=== PATIENT | female | born 1935 ===

== ENCOUNTER 2018-01-09 17:30 | Emergency (ER) | payer MEDICARE, MEDICAID ==
[2018-01-09] MEDS ORDERED: Iohexol 240 (50 ml) PO STA (17:48)
[2018-01-09] MEDS ORDERED: Sodium Chloride 0.9% 1,000 ML IV ONE (17:48)
--- NOTE | 2018-01-09 17:52 | C.PDOC ---
"History Of Present Illness 82 year old female presents to the ED complaining of left sided abdominal pain for more than one week. Patient states the pain was tolerable until today that pain became severe. She denies any nausea, vomiting, diarrhea, fever, or urinary symptoms. Pain is worsen by walking and moving. Time Seen by Provider: 01/09/18 17:37 Chief Complaint (Nursing): Abdominal Pain History Per: Patient History/Exam Limitations: no limitations Onset/Duration Of Symptoms: Days Current Symptoms Are (Timing): Still Present Location Of Pain/Discomfort: LLQ Radiation Of Pain To:: None Associated Symptoms: denies: Fever, Vomiting, Diarrhea, Urinary Symptoms Exacerbating Factors: Movement, Walking Past Medical History Reviewed: Historical Data, Nursing Documentation, Vital Signs Vital Signs: Last Vital Signs Temp 98.7 F 01/09/18 17:39 Pulse 78 01/09/18 20:36 Resp 16 01/09/18 20:36 BP 160/41 H 01/09/18 20:36 Pulse Ox 95 01/09/18 21:08 - Medical History PMH: Arthritis, HTN Denies: Chronic Kidney Disease Surgical History: Hernia Repair, - [facility] Procedures COLONOSCOPY (06/08/14) Family History: States: No Known Family Hx - Social History Hx Tobacco Use: No Hx Alcohol Use: No Hx Substance Use: No - Immunization History Hx Tetanus Toxoid Vaccination: No Hx Influenza Vaccination: No Hx Pneumococcal Vaccination: No Review Of Systems Constitutional: Negative for: Fever Gastrointestinal: Positive for: Abdominal Pain (Left lower quadrant ). Negative for: Nausea, Vomiting, Diarrhea Genitourinary: Negative for: Dysuria, Frequency, Incontinence, Hematuria, Vaginal Bleeding Musculoskeletal: Negative for: Back Pain Physical Exam - Physical Exam Appears: Non-toxic, Other (Uncomfortable ) Skin: Normal Color, Warm, Dry Head: Atraumatic Eye(s): bilateral: Normal Inspection Nose: Normal Oral Mucosa: Moist Neck: Supple Chest: Symmetrical Cardiovascular: Rhythm Regular Respiratory: Normal Breath Sounds, No Rales, No Rhonchi, No Wheezing Gastrointestinal/Abdominal: Bowel Sounds (Active ), Soft, Tenderness (Left lower quadrant ), Guarding, No Rebound Neurological/Psych: Oriented x3 Gait: Steady ED Course And Treatment - Laboratory Results Result Diagrams: 01/09/18 18:00 01/09/18 18:00 Lab Interpretation: No Acute Changes O2 Sat by Pulse Oximetry: 95 (RA) Pulse Ox Interpretation: Normal - CT Scan/US CT Abd/pel Other Rad Studies (CT/US): Read By Radiologist, Radiology Report Reviewed CT/US Interpretation: Name: BETTE GAO Age: 82Years F Date: 01/09/2018. Requesting Physician: Corazon Winchester : 1935. [facility] Procedure Ordered As Accession Number of. Images. CT ABDOMEN/PELVIS. W. CT ABD PELVIS PO IV. CONTRAST. [id number]. J. 1228. Provided Clinical History: abd pain. EXAM: CT Abdomen and Pelvis With Intravenous Contrast. CLINICAL HISTORY: 82 years old, female; Pain and signs and symptoms; Nausea; Abdominal pain;. Localized; Left lower quadrant (llq); Prior surgery; Surgery date: 6+ months; Surgery type: Hernia;. Additional info: Abd pain. TECHNIQUE: Axial computed tomography images of the abdomen and pelvis with intravenous. contrast. All CT scans at this facility use at least one of these dose optimization techniques: automated exposure control; mA and/or kV adjustment per patient size (includes targeted exams. where dose is matched to clinical indication); or iterative reconstruction. Coronal and sagittal. reformatted images were created and reviewed. CONTRAST: 100 mL of omnipaque 300 was administered intravenously. COMPARISON: No relevant prior studies available. FINDINGS: Lung bases: Atelectasis posterior lungs. ABDOMEN: Liver: Unremarkable. No mass. Gallbladder and bile ducts: Cholecystectomy. No ductal dilation. Pancreas: Unremarkable. No mass. No ductal dilation. Spleen: Unremarkable. No splenomegaly. Adrenals: Unremarkable. No mass. Kidneys and ureters: Right renal cysts. No hydronephrosis. Stomach and bowel: Diverticulosis in the colon without evidence of diverticulitis. No obstruction. PELVIS: Appendix: Normal appendix. Bladder: Unremarkable. No mass. BETTE GAO | Preliminary Radiology Report. CONFIDENTIALITY STATEMENT. This report is intended only for the use of the referring physician, and only in accordance with law, If you received this in error, call [phone]. Page 2 of 2. Reproductive: Unremarkable as visualized. ABDOMEN and PELVIS: Intraperitoneal space: Unremarkable. No free air. No significant fluid collection. Bones/joints: Degenerative changes lumbar spine. No acute fracture. No dislocation. Soft tissues: Unremarkable. Vasculature: Atherosclerotic disease. No abdominal aortic aneurysm. Lymph nodes: Unremarkable. No enlarged lymph nodes. IMPRESSION: No acute findings. Thank you for allowing us to participate in the care of your patient. Dictated and Authenticated by: Andrea Love MD. 9:06 PM Eastern Time ([place] & [place]) Reevaluation Time: 21:29 Reassessment Condition: Improved (Patient still having pain in abdominal wall LLQ but resting quietly.) Medical Decision Making Medical Decision Making: Plan - CT Abd/Pel - Labs - Morphine 2mg IVP - IV Fluids - UA - Reassess Disposition Counseled Patient/Family Regarding: Studies Performed, Diagnosis, Need For Followup - Disposition Referrals: Chanda Barajas MD [Staff Provider] - Disposition: HOME/ ROUTINE Disposition Time: 21:29 Condition: IMPROVED Additional Instructions: Take Tylenol or Advil if needed for pain. Instructions: Acute Abdomen (Belly Pain), Adult (DC) Forms: [facility] (Lebanese) Print Language: LITHUANIAN - Clinical Impression Clinical Impression: Abdominal wall pain - Scribe Statement The provider has reviewed the documentation as recorded by the Scribe Gilda Cannon All medical record entries made by the Scribe were at my direction and personally dictated by me. I have reviewed the chart and agree that the record accurately reflects my personal performance of the history, physical exam, medical decision making, and the department course for this patient. I have also personally directed, reviewed, and agree with the discharge instructions and disposition."
[2018-01-09] MEDS ORDERED: Iohexol 240 (50 ml) ONE (17:57)
[2018-01-09 18:09] LABS: BASO # 0.1 K/uL (0.0-0.2); BASO % 0.9 % (0.0-2.0); EOS # 0.1 K/uL (0.0-0.7); EOS % 1.1 % (0.0-4.0); HEMOGLOBIN 12.6 g/dL (11.0-16.0); LYMPH # 1.4 K/uL (1.0-4.3); LYMPH % 13.3 % (20.0-40.0); MEAN CORPUSCULAR HEMOGLOBIN 29.6 pg (27.0-31.0); MEAN CORPUSCULAR HGB CONC 34.3 g/dL (33.0-37.0); MEAN PLATELET VOLUME 8.2 fL (7.2-11.7); MONO # 0.9 K/uL (0.0-0.8); MONO % 8.1 % (0.0-10.0); NEUT # 8.3 K/uL (1.8-7.0); NEUT % 76.6 % (50.0-75.0); RBC 4.25 Mil/uL (3.80-5.20); RED CELL DISTRIBUTION WIDTH 13.5 % (11.5-14.5); WHITE BLOOD COUNT 10.9 K/uL (4.8-10.8)
[2018-01-09 18:10] LABS: MEAN CELL VOLUME 86.2 fL (81.0-99.0)
[2018-01-09 18:14] LABS: ALB/GLOB RATIO 1.3 (1.0-2.1); ALBUMIN 4.1 g/dL (3.5-5.0); ALT/SGPT 29 U/L (9-52); AST/SGOT 21 U/L (14-36); BLOOD UREA NITROGEN 20 mg/dL (7-17); CALCIUM 9.1 mg/dl (8.6-10.4); GFR AFRICAN-AMERICAN > 60; GFR NON-AFRICAN AMERICAN 53; LIPASE 165 U/L (23-300)
[2018-01-09] MEDS ORDERED: Iohexol 300 100 ML IJ ONE (18:34)
[2018-01-09 20:30] LABS: URINE BILIRUBIN NEGATIVE (NEGATIVE); URINE BLOOD NEGATIVE (NEGATIVE); URINE CLARITY Clear (Clear); URINE COLOR Straw (YELLOW); URINE GLUCOSE (UA) NORMAL (Normal); URINE LEUKOCYTE ESTERASE NEG Leu/uL (Negative); URINE PROTEIN NEGATIVE (NEGATIVE); URINE UROBILINOGEN NORMAL mg/dL (0.2-1.0)
[2018-01-09 20:37] VITALS: O2SAT 95
[2018-01-09 21:40] VITALS: BP 170/51; PULSE 74; RESP 20; TEMP 98
--- NOTE | 2018-01-10 11:12 | CT ---
Date of service: 01/09/2018 PROCEDURE: CT Abdomen and Pelvis with contrast HISTORY: abd pain COMPARISON: None. TECHNIQUE: Following oral and intravenous contrast administration, a CT examination of the abdomen and pelvis performed from the domes of the diaphragms to the symphysis pubis with reformatted datasets provided not only axial but also sagittal and coronal series. Contrast dose: Omnipaque 300, 100 cc Radiation dose: Total exam DLP = 1026.41 mGy-cm. This CT exam was performed using one or more of the following dose reduction techniques: Automated exposure control, adjustment of the mA and/or kV according to patient size, and/or use of iterative reconstruction technique. FINDINGS: LOWER THORAX: Cardiomegaly. Mild scattered ground-glass opacities identified at both bases of a nonspecific etiology. No pleural or pericardial effusion evident grossly. LIVER: Diminished attenuation is seen throughout the liver suggestive of diffuse fatty infiltration. GALLBLADDER AND BILE DUCTS: Prior cholecystectomy. PANCREAS: Unremarkable. No gross lesion or ductal dilatation. SPLEEN: Unremarkable. ADRENALS: Unremarkable. No mass. KIDNEYS AND URETERS: 1.2 cm midpole right renal cyst with mildly prominent extrarenal pelvis right kidney. No obstructive uropathy bilaterally. Left kidney grossly nonfocal. VASCULATURE: Unremarkable. No aortic aneurysm. BOWEL: Stomach is unremarkable though partially obscured by retained occluded. Oral contrast is distends the stomach. The bowel is nonobstructive. Opacified large small bowel loops are remarkable only for sigmoid diverticulosis without acute changes. APPENDIX: Normal appendix. PERITONEUM: Unremarkable. No free fluid. No free air. LYMPH NODES: Unremarkable. No enlarged lymph nodes. BLADDER: Unremarkable. REPRODUCTIVE: Unremarkable. BONES: No acute fracture. OTHER FINDINGS: None. IMPRESSION: 1. Sigmoid diverticulosis without diverticulitis. 2. Simple cyst right kidney. 3. Prior cholecystectomy. 4. No definite acute abdominopelvic findings. Concordant preliminary report from [facility], 01/09/2018.
== END 2018-01-09 21:41 | disposition home or self-care (01) ==
LOC: C.ER 17:30
DX: R10.9 Unspecified abdominal pain (principal); I10 Essential (primary) hypertension
CPT/HCPCS: 74177; 80053; 81001; 83690; 85025; 96361; 96374; 96376; 99285; J2270; J7030; Q9966; Q9967

== ENCOUNTER 2018-11-11 08:32 | Outpatient (CLI) | payer MEDICARE, MEDICAID | END 2018-11-11 08:33 | disposition home or self-care (01) | LOC: C.MRIC 08:32 ==

== ENCOUNTER 2018-11-16 11:54 | Emergency (ER) | payer MEDICARE, MEDICAID ==
[2018-11-16 12:01] VITALS: BMI 38.2
--- NOTE | 2018-11-16 13:42 | CT ---
Date of service: 11/16/2018 PROCEDURE: CT HEAD WITHOUT CONTRAST. HISTORY: Headache COMPARISON: None available. TECHNIQUE: Axial computed tomography images were obtained through the head/brain without intravenous contrast. Radiation dose: Total exam DLP = 1263.49 mGy-cm. This CT exam was performed using one or more of the following dose reduction techniques: Automated exposure control, adjustment of the mA and/or kV according to patient size, and/or use of iterative reconstruction technique. FINDINGS: HEMORRHAGE: No intracranial hemorrhage. BRAIN: There are mild chronic microangiopathic changes. There is no mass, mass effect or abnormal extra-axial fluid collection. There is no territorial infarction. The midline sagittal structures are normal.There are coarse atherosclerotic calcifications in the cavernous carotid arteries. VENTRICLES: There is mild age-related global parenchymal volume loss and proportionate enlargement of the ventricles and cortical sulci. CALVARIUM: There is no calvarial fracture or extracranial soft tissue swelling. PARANASAL SINUSES: Predominantly clear. MASTOID AIR CELLS: Predominantly clear. OTHER FINDINGS: None. IMPRESSION: No acute intracranial abnormality. Mild chronic microangiopathic changes and mild age-related global parenchymal volume loss.
[2018-11-16 14:11] VITALS: BP 166/49; PULSE 76; RESP 16; TEMP 97.6; O2SAT 96
--- NOTE | 2018-11-16 14:55 | C.PDOC ---
History Of Present Illness 83 year old female with PMH HTN presents to ED with worsening occipital headache x 1 week. Patient also reports associated nausea, no vomiting. Patient describes headache as pulsing, constant, not positional, not associated with time of day. Endorses photophobia. Denies photophobia, history of migraine, vision change, dizziness, weakness, chest pain, SOB, abdominal pain, urinary symptoms, or sick contacts. Time Seen by Provider: 11/16/18 12:08 Chief Complaint (Nursing): Headache History Per: Patient History/Exam Limitations: no limitations Onset/Duration Of Symptoms: Days Current Symptoms Are (Timing): Still Present Severity: Moderate Preceeding Symptoms: None Past Medical History Vital Signs: Last Vital Signs Temp 97.6 F 11/16/18 14:10 Pulse 76 11/16/18 14:10 Resp 16 11/16/18 14:10 BP 166/49 H 11/16/18 14:10 Pulse Ox 96 11/16/18 14:10 Primary Care Provider: FAMILY PROVIDER,NO - Medical History PMH: Arthritis, HTN Denies: Chronic Kidney Disease Surgical History: Hernia Repair, - [facility] Procedures COLONOSCOPY (06/08/14) Family History: States: Unknown Family Hx - Social History Hx Tobacco Use: No Hx Alcohol Use: No Hx Substance Use: No - Immunization History Hx Tetanus Toxoid Vaccination: No Hx Influenza Vaccination: No Hx Pneumococcal Vaccination: No Review Of Systems Constitutional: Negative for: Fever, Chills Eyes: Negative for: Vision Change Cardiovascular: Negative for: Chest Pain, Palpitations Respiratory: Negative for: Cough, Shortness of Breath Gastrointestinal: Positive for: Nausea. Negative for: Vomiting, Abdominal Pain Genitourinary: Negative for: Dysuria Musculoskeletal: Positive for: Neck Pain. Negative for: Back Pain Neurological: Positive for: Headache. Negative for: Weakness, Numbness Physical Exam - Physical Exam Appears: Well, Non-toxic, No Acute Distress, Other (Resting with closed eyes in dark room) Skin: Normal Color, Warm, Dry Head: Atraumatic, Normacephalic Eye(s): bilateral: Normal Inspection, PERRL, EOMI Oral Mucosa: Moist Neck: Normal ROM (Pain with flexion and rotation, but full ROM. No nuchal rigidity), Supple Chest: Symmetrical Cardiovascular: Rhythm Regular, No Friction Rub, No Murmur Respiratory: Normal Breath Sounds, No Rales, No Rhonchi, No Wheezing Gastrointestinal/Abdominal: Normal Exam, Soft, No Tenderness Neurological/Psych: Oriented x3, Normal Speech, Normal Cranial Nerves, Normal Motor, Normal Sensation, Other (No focal neuro deficits) Gait: Steady ED Course And Treatment O2 Sat by Pulse Oximetry: 96 - CT Scan/US Noncontrast Head CT Other Rad Studies (CT/US): Read By Radiologist CT/US Interpretation: Date of service: 11/16/2018. PROCEDURE: CT HEAD WITHOUT CONTRAST. HISTORY: Headache. COMPARISON: None available. TECHNIQUE: Axial computed tomography images were obtained through the head/brain without intravenous contrast. Radiation dose: Total exam DLP = 1263.49 mGy-cm. This CT exam was performed using one or more of the following dose reduction techniques: Automated exposure control, adjustment of the mA and/or kV according to patient size, and/or use of iterative reconstruction technique. FINDINGS: HEMORRHAGE: No intracranial hemorrhage. BRAIN: There are mild chronic microangiopathic changes. There is no mass, mass effect or abnormal extra-axial fluid collection. There is no territorial infarction. The midline sagittal structures are normal.There are coarse atherosclerotic calcifications in the cavernous carotid arteries. VENTRICLES: There is mild age-related global parenchymal volume loss and proportionate enlargement of the ventricles and cortical sulci. CALVARIUM: There is no calvarial fracture or extracranial soft tissue swelling. PARANASAL SINUSES: Predominantly clear. MASTOID AIR CELLS: Predominantly clear. OTHER FINDINGS: None. IMPRESSION: No acute intracranial abnormality. Mild chronic microangiopathic changes and mild age-related global parenchymal volume loss. Medical Decision Making Medical Decision Making: Plan: --head CT --pain meds Head CT without hemorrhage or acute pathology. Likely migraine or tension type headache, unlikely to be aneurysm given 1 week duration of symptoms. Patient reports mild reduction of pain after toradol, reglan, benadryl. Recommend outpatient neuro follow up for persistent headaches and follow up with PMD for HTN (slightly elevated in ED today). Return precautions discussed Disposition Counseled Patient/Family Regarding: Studies Performed, Diagnosis, Need For Followup, Rx Given - Disposition Referrals: Judah Kulkarni MD [Staff Provider] - Disposition: HOME/ ROUTINE Disposition Time: 14:53 Condition: GOOD Additional Instructions: Follow up with your PMD regarding you blood pressure in the next 2-3 days. Follow up with the neurologist (lower on this page) for your headache if it does not improve this week. You may take tylenol and motrin for pain at home. Return to the ED if you develop weakness, vision change, fever, or confusion Prescriptions: Acetaminophen [Acetaminophen Extra Strength] 500 mg PO .Q4-6 #3 tablet Ibuprofen [Motrin Tab] 600 mg PO Q8 #30 tab Instructions: Headache, Adult (DC) Forms: [facility] (Kiswahili) Print Language: CITIZEN OF [place] - Clinical Impression Clinical Impression: Headache
== END 2018-11-16 15:42 | disposition home or self-care (01) ==
LOC: C.ER 11:54
DX: R51 Headache (principal); I10 Essential (primary) hypertension
CPT/HCPCS: 70450; 96374; 99285; J1885